=== PATIENT | male | born 1965 | race African-American/Black ===

== ENCOUNTER → 2019-01-26 | Outpatient (CLI) | payer OTHER ==
[~2019-01-26] MED LIST: OMNIPAQUE 350 MG/ML, 100ML BOTTLE ONE
[2019-01-26 13:31] LABS: CREATININE 1.08 mg/dL (0.7-1.3)
== END | disposition home or self-care (01) ==
LOC: RAD 12:47 → EDSTATUS 14:00
PROVIDERS: ATTEND Family Medicine
DX: K76.0 Fatty (change of) liver, not elsewhere classified (principal); K40.90 Unilateral inguinal hernia, without obstruction or gangrene, not specified as recurrent; M47.816 Spondylosis without myelopathy or radiculopathy, lumbar region
CPT/HCPCS: 36415; 74177; 82565; Q9967

== ENCOUNTER 2019-03-02 21:01 | Inpatient (IN) | payer OTHER ==
[~2019-03-02] VITALS: Ht 190.5 cm; Wt 100.1 kg
[2019-03-05 15:16] VITALS: BP 148/75
== END 2019-03-05 18:44 | disposition home or self-care (01) | DRG 281 ==
LOC: ED 22:26 → EDIP 22:47 → 5SO 23:31
PROVIDERS: ADMIT Family Medicine; ATTEND Family Medicine
PROC: 4A023N7 Measurement of Cardiac Sampling and Pressure, Left Heart, Percutaneous Approach (ICD-10-PCS; principal; 2019-03-05)
PROC: B2151ZZ Fluoroscopy of Left Heart using Low Osmolar Contrast (ICD-10-PCS; 2019-03-05)
PROC: B2111ZZ Fluoroscopy of Multiple Coronary Arteries using Low Osmolar Contrast (ICD-10-PCS; 2019-03-05)
DX: I21.4 Non-ST elevation (NSTEMI) myocardial infarction (principal); I42.9 Cardiomyopathy, unspecified; E11.9 Type 2 diabetes mellitus without complications; D50.9 Iron deficiency anemia, unspecified; E78.5 Hyperlipidemia, unspecified; I36.1 Nonrheumatic tricuspid (valve) insufficiency; H81.10 Benign paroxysmal vertigo, unspecified ear; Z79.02 Long term (current) use of antithrombotics/antiplatelets; Z80.6 Family history of leukemia; Z82.49 Family history of ischemic heart disease and other diseases of the circulatory system; Z83.3 Family history of diabetes mellitus; Z87.891 Personal history of nicotine dependence
CPT/HCPCS: 36415; 71045; 80053; 80061; 81003; 82728; 83036; 83540; 83550; 83690; 84484; 85025; 85379; 85520; 93005; 93306; 93458; 93880; 99156; 99285; C1769; C1894; G0378; J0583; J1644; J2250; Q9967